=== PATIENT | male | born 1990 | race Caucasian/White ===

== ENCOUNTER 2018-11-10 12:11 | Emergency (ER) | payer OTHER ==
[2018-11-10] MEDS: HYDROCODONE/APAP (5/325) TAB PO (13:04)
[2018-11-10] MEDS: ONDANSETRON (ODT) 4 MG TAB ODT (13:04)
== END 2018-11-10 13:59 | disposition home or self-care (01) ==
LOC: FTE 13:59
DX: S20.211A Contusion of right front wall of thorax, initial encounter (principal); F17.210 Nicotine dependence, cigarettes, uncomplicated; X58.XXXA Exposure to other specified factors, initial encounter; Y92.9 Unspecified place or not applicable
CPT/HCPCS: 71100; 82962; 99283-25